=== PATIENT | female | born 1970 | race Caucasian/White ===

== ENCOUNTER 2018-06-20 09:08 | Inpatient (IN) ==
[2018-06-20] MEDS ORDERED: HYDROmorphone PF Inj 2 MG/ML Vial IV.PUSH ONE ×2 (09:30→11:51)
[2018-06-20 10:02] LABS: Baso # (Auto) 0.1 th/mm3 (0.0-0.2); Baso % (Auto) 0.9 % (0.0-2.0); Eos % (Auto) 0.4 % (0.0-4.0); Hematocrit 44.9 % (35.0-46.0); Hemoglobin 15.3 gm/dL (11.6-15.3); Lymph # (Auto) 1.6 th/mm3 (1.0-4.8); Lymph % (Auto) 18.3 % (9.0-44.0); Mean Corpuscular Hemoglobin 31.1 pg (27.0-34.0); Mean Corpuscular Volume 91.4 fL (80.0-100.0); Mean Platelet Volume 8.8 fL (7.0-11.0); Mono # (Auto) 0.4 th/mm3 (0.0-0.9); Mono % (Auto) 4.5 % (0.0-8.0); Neut # (Auto) 6.7 th/mm3 (1.8-7.7); Neut % (Auto) 75.9 % (16.0-70.0); Platelet Count 321 th/mm3 (150-450); Red Blood Count 4.91 mil/mm3 (4.00-5.30); Red Cell Distribution Width 15.4 % (11.6-17.2); White Blood Count 8.8 th/mm3 (4.0-11.0)
[2018-06-20] MEDS ORDERED: Sod Chloride 0.9% Inj 1,000 ML IV.SIG SCH (10:15)
--- NOTE | 2018-06-20 10:53 | CT ---
EXAM DATE: 06/20/2018 9:49 AM EDT AGE/SEX: 47 years / Female INDICATIONS: Severe back pain. CLINICAL DATA: This is the patient's initial encounter. Patient reports that signs and symptoms have been present for 1 day and indicates a pain score of 7/10. MEDICAL/SURGICAL HISTORY: Chronic obstructive pulmonary disease. Diabetes. Lupus. ankylosing spo ndylitis None. RADIATION DOSE: 23.54 CTDI (mGy) ; Combined studies COMPARISON: No prior exams available for comparison. TECHNIQUE: Contiguous axial images were acquired with a multirow detector CT scanner without contras t. Multiplanar reconstructions in the sagittal and coronal plane were also performed. Using automate d exposure control and adjustment of the mA and/or kV according to patient size, radiation dose was k ept as low as reasonably achievable to obtain optimal diagnostic quality images. DICOM format image data is available electronically for review and comparison. FINDINGS: Vertebrae: Normal vertebral body height. Degenerative disc disease at L4-5 with anterior endplate sc lerosis and degenerative disc disease. Alignment: Minimal anterolisthesis L3 on 4.. T12-L1: The thecal sac has a normal diameter. No evidence of disc bulge or protrusion. The neural foramina are patent bilaterally. L1-L2: The thecal sac has a normal diameter. No evidence of disc bulge or protrusion. The neural f oramina are patent bilaterally. L2-L3: The thecal sac has a normal diameter. No evidence of disc bulge or protrusion. The neural f oramina are patent bilaterally. L3-L4: Minimal anterolisthesis and mild broad-based protrusion abuts the ventral thecal sac. No dakota l stenosis. Mild neural foraminal narrowing bilaterally. Moderate facet arthropathy bilaterally but g reater on the right. L4-L5: Moderate broad-based protrusion abuts the ventral thecal sac. No significant canal stenosis. Mild neural foraminal narrowing bilaterally. Mild facet arthropathy. L5-S1: Mild broad-based disc bulge abuts the ventral thecal sac without canal stenosis. The neural foramina are patent bilaterally. Mild facet arthropathy. CONCLUSION: 1. Degenerative changes lower lumbar spine. 2. Degenerative disc disease L4-5. 3. Minimal anterolisthesis L3 on 4. 4. Protrusions/disc bulges along the lower lumbar spine as described above. 5. No compression fracture. Electronically signed by: Zafar Espino MD 06/20/2018 10:52 AM EDT
--- NOTE | 2018-06-20 11:07 | CT ---
EXAM DATE: 06/20/2018 9:49 AM EDT AGE/SEX: 47 years / Female INDICATIONS: Severe back pain. CLINICAL DATA: This is the patient's initial encounter. Patient reports that signs and symptoms have been present for 1 day and indicates a pain score of 7/10. MEDICAL/SURGICAL HISTORY: Chronic obstructive pulmonary disease. Diabetes. Lupus. ankylosing spo ndylitis None. RADIATION DOSE: 23.54 CTDI (mGy) ; Combined studies COMPARISON: None . TECHNIQUE: Contiguous axial images were acquired using a multirow detector CT scanner without contra st. Multiplanar reconstruction in the sagittal and coronal planes was performed. Using automated exp osure control and adjustment of the mA and/or kV according to patient size, radiation dose was kept a s low as reasonably achievable to obtain optimal diagnostic quality images. DICOM format image data is available electronically for review and comparison. FINDINGS: Vertebrae: Normal vertebral body height. Alignment: Normal. No subluxation. Images of the lung parenchyma show diffuse emphysematous changes. 2 pulmonary nodules observed. Withi n the left posterior lung base there is a 7 mm nodule and within the left upper lobe adjacent to the major fissure is an 8 mm subpleural nodule. There is an enlarged anterior mediastinal lymph node with in the prevascular space measuring 2.4 x 0.9 cm. T1 - T2: Normal. T2 - T3: The thecal sac has a normal diameter. No evidence of disc bulge or protrusion. T3 - T4: The thecal sac has a normal diameter. No evidence of disc bulge or protrusion. T4 - T5: The thecal sac has a normal diameter. No evidence of disc bulge or protrusion. T5 - T6: The thecal sac has a normal diameter. No evidence of disc bulge or protrusion. T6 - T7: The thecal sac has a normal diameter. No evidence of disc bulge or protrusion. T7 - T8: The thecal sac has a normal diameter. No evidence of disc bulge or protrusion. T8 - T9: The thecal sac has a normal diameter. No evidence of disc bulge or protrusion. T9 - T10: The thecal sac has a normal diameter. No evidence of disc bulge or protrusion. T10 - T11: The thecal sac has a normal diameter. No evidence of disc bulge or protrusion. T11 - T12: The thecal sac has a normal diameter. No evidence of disc bulge or protrusion. T12 - L1: The thecal sac has a normal diameter. No evidence of disc bulge or protrusion. CONCLUSION: 1. No acute abnormality. Central canal patent throughout. 2. Emphysematous changes with 2 small pulmonary nodules involving the left lung as well as a solitar y enlarged mediastinal lymph node. These are nonspecific in their appearance. A follow-up CT scan of the chest with IV contrast in 3-6 months is suggested to document stability. Electronically signed by: Pacheco Van MD 06/20/2018 11:06 AM EDT
[2018-06-20 11:13] LABS: Alanine Aminotransferase 21 U/L (10-53); Albumin 2.9 g/dL (3.4-5.0); Anion Gap 8 meq/L (5-15); Aspartate Aminotransferase 16 U/L (15-37); Blood Urea Nitrogen 12 mg/dL (7-18); Calcium 8.3 mg/dL (8.5-10.1); Carbon Dioxide 29.2 meq/L (21.0-32.0); Chloride 104 meq/L (98-107); Glomerular Filtration Rate Greater Than 89 mL/min (>89); Glucose,Random 255 mg/dL (74-106); Potassium 3.5 meq/L (3.5-5.1); Sodium 141 meq/L (136-145)
[2018-06-20 11:15] LABS: Alkaline Phosphatase 145 U/L (45-117)
--- NOTE | 2018-06-20 12:47 | MR ---
EXAM DATE: 06/20/2018 11:52 AM EDT AGE/SEX: 47 years / Female INDICATIONS: Pain. Mid back pain from fall today. CLINICAL DATA: This is the patient's initial encounter. Patient reports that signs and symptoms have been present for 1 day and indicates a pain score of 8/10. MEDICAL/SURGICAL HISTORY: Diabetes mellitus type I. Hypertension. Cholecystectomy. Appendecto my. Tubal ligation. Rt knee sx. COMPARISON: CT of the thoracic spine 06/20/2018. TECHNIQUE: Multiplanar, multisequence MRI of the thoracic spine was performed. FINDINGS: Vertebrae: Normal vertebral body height. Homogeneous marrow signal. Alignment: Normal. Cord: Normal position and configuration. T1-T2: The thecal sac has a normal diameter. No evidence of disc bulge or protrusion. T2-T3: The thecal sac has a normal diameter. No evidence of disc bulge or protrusion. T3-T4: The thecal sac has a normal diameter. No evidence of disc bulge or protrusion. T4-T5: The thecal sac has a normal diameter. No evidence of disc bulge or protrusion. T5-T6: The thecal sac has a normal diameter. No evidence of disc bulge or protrusion. T6-T7: There is a right paracentral disc protrusion that flattens the ventral portion of the cord. C entral canal is otherwise patent.. T7-T8: The thecal sac has a normal diameter. No evidence of disc bulge or protrusion. T8-T9: The thecal sac has a normal diameter. No evidence of disc bulge or protrusion. T9-T10: The thecal sac has a normal diameter. No evidence of disc bulge or protrusion. T10-T11: The thecal sac has a normal diameter. No evidence of disc bulge or protrusion. T11-T12: The thecal sac has a normal diameter. No evidence of disc bulge or protrusion. T12-L1: The thecal sac has a normal diameter. No evidence of disc bulge or protrusion. CONCLUSION: 1. Right paracentral disc protrusion at T6-T7 flattens the ventral portion of the cord. Signal withi n the cord is normal. Electronically signed by: Pacheco Van MD 06/20/2018 12:45 PM EDT
--- NOTE | 2018-06-20 12:51 | MR ---
EXAM DATE: 06/20/2018 11:52 AM EDT AGE/SEX: 47 years / Female INDICATIONS: HNP. Low back pain for one day from fall. CLINICAL DATA: This is the patient's initial encounter. Patient reports that signs and symptoms have been present for 1 day and indicates a pain score of 8/10. MEDICAL/SURGICAL HISTORY: Hypertension. Diabetes mellitus type I. Cholecystectomy. Appendecto my. Tubal ligation. COMPARISON: CT lumbar spine 06/20/2018. TECHNIQUE: Multiplanar, multisequence MRI of the lumbar spine was performed without contrast. Patie nt was scanned in a sitting position; neutral, flexion, and extension scans were performed in the sa gittal plane. FINDINGS: Vertebra: Homogeneous signal. There is a focal kyphosis at L4-L5 with mild splaying of the posterior elements. Conus: Normal level and configuration. T12-L1: The thecal sac has a normal diameter. No evidence of disc bulge or protrusion. The neural foramina are patent bilaterally. L1-L2: The thecal sac has a normal diameter. No evidence of disc bulge or protrusion. The neural foramina are patent bilaterally. L2-L3: The thecal sac has a normal diameter. No evidence of disc bulge or protrusion. The neural foramina are patent bilaterally. L3-L4: There is disc desiccation with mild disc space narrowing. A broad-based disc bulge eccentric to the right. Mild narrowing of the central canal which measures 8 mm in anterior to posterior dimen donald within the midline. Mild bony hypertrophy and ligamentum flavum hypertrophy of the facets. The d isc extends into the right neural foramen abutting the exiting right L3 nerve root. Left neural michael en is patent. L4-L5: There is a focal kyphosis centered at this level. There is disc desiccation and disc space n arrowing which is more pronounced anteriorly. A broad-based disc bulge is observed. Mild ligament fla vum hypertrophy of the facet joints. Central canal and lateral recesses are patent. The disc extends into the inferior margins of the neural foramina bilaterally but no impingement. L5-S1: The thecal sac has a normal diameter. No evidence of disc bulge or protrusion. The neural foramina are patent bilaterally. CONCLUSION: 1. Focal kyphosis at L4-L5 with mild splaying of the posterior elements. No edema. No ligamentous in jury appreciated. 2. Broad-based disc bulge at L3-L4 with right L3 neural foraminal impingement. Electronically signed by: Pacheco Van MD 06/20/2018 12:49 PM EDT
[2018-06-20 13:24] LABS: Bacteria,Urine Occasional /hpf; Bilirubin,Urine Negative (Negative); Clarity,Urine Hazy (Clear); Color,Urine Yellow (Yellw/Straw); Glucose,Urine (UA) 50 mg/dL (Negative); Leukocyte Esterase,Urine Negative (Negative); Mucus,Urine Few /lpf (Occasional); Nitrite,Urine Negative (Negative); Specific Gravity,Urine 1.015 (1.002-1.035); Squamous Epithelial Cell,Urine <1 /hpf (0-5)
--- NOTE | 2018-06-20 15:12 | ED ---
HPI General Chief complaint: Nausea/Vomiting/Diarrhea Stated complaint: nausea,back pain Time Seen by Provider: 06/20/18 09:30 History of Present Illness HPI narrative: This is a 47-year-old female with history of ankylosing spondylitis, Crohn's disease, rheumatoid arthritis, insulin dependent diabetes, presents today with severe lower back pain. Patient reports the back pain is a 10 out of 10. There is no relieving symptoms. Patient also states that she had loss of urine control earlier this morning. She also reports weakness in her legs. The patient denies any previous symptoms of such. She does report that she has had multiple spinal condition secondary to the . She denies any bowel incontinence. She reports that she is able to now move her lower extremities however was scared because of the episode that happened earlier. Related Data Home Medications Medication Instructions Recorded Confirmed hydromorphone [Dilaudid] 4 mg PO Q4-6H PRN 06/20/18 06/20/18 insulin lispro [Humalog U-100 1 sliding scale dose SUBCUT UD 06/20/18 06/20/18 Insulin] methadone 10 mg PO Q4H 06/20/18 06/20/18 prednisone 5 mg PO BID 06/20/18 06/20/18 promethazine 25 mg PO Q6H PRN 06/20/18 06/20/18 Allergies Allergy/AdvReac Type Severity Reaction Status Date / Time meperidine Allergy Mild NAUSEA AND Unverified 04/27/17 17:04 VOMIT morphine Allergy Nausea/Vomi Verified 06/20/18 09:24 ting Review of Systems ROS: all other systems reviewed are negative Constitutional Denies chills and Denies fever(s) Eyes Reports system reviewed and no additional complaints, except as docu ENT Reports system reviewed and no additional complaints, except as docu Cardiovascular Denies chest pain, Denies palpitations and Denies dyspnea Respiratory Denies chest congestion, Denies cough and Denies dyspnea Gastrointestinal Denies abdominal pain, Denies nausea, Denies vomiting and Denies other Genitourinary Reports urinary incontinence Musculoskeletal Reports back pain (Severe lower and mid), Denies numbness and Reports other ( Episodic weakness of her bilateral lower extremities.) Neurologic Denies headache(s), Denies sensory deficit and Reports weakness PMFSH Medical History Medical History Ankylosing spondylitis (Acute) COPD (chronic obstructive pulmonary disease) (Acute) Diabetes (Acute) Lung disease (Acute) Lupus (Acute) Rheumatoid arthritis (Acute) Social History Social History Substance History: No History of Abuse Second Hand Smoke Exposure: No Smoking Status: Never smoker How Often Do You Have a Drink Containing Alcohol: Never Recent Travel in [facility] within the Last 8 Weeks: No Recent Out of Country Travel within the Last 8 Weeks: No Immunization History Tetanus Immunization: <5 Years Exam Narrative Exam Narrative: GENERAL: Well-developed well-nourished female who is crying out in severe pain. SKIN: Focused skin assessment warm/dry. HEAD: Atraumatic. Normocephalic. EYES: No scleral icterus. No injection or drainage. ENT: No nasal bleeding or discharge. Mucous membranes pink and moist. NECK: Trachea midline. Supple. CARDIOVASCULAR: Regular rate and rhythm. No murmur appreciated. RESPIRATORY: No accessory muscle use. Clear to auscultation. Breath sounds equal bilaterally. GASTROINTESTINAL: Abdomen soft, non-tender, nondistended. Hepatic and splenic margins not palpable. MUSCULOSKELETAL: No obvious deformities. No clubbing. No cyanosis. No edema. NEUROLOGICAL: Awake and alert. No obvious cranial nerve deficits. Motor appeared grossly within normal limits in bilateral upper and lower eXTREMITIES: No clubbing, cyanosis, or edema. No joint tenderness, effusion, or edema noted. No calf tenderness. Bilateral Homans sign negative.. Normal speech. Course Initial Documented Vital Signs Temperature 98.3 F 06/20/18 09:24 Pulse Rate 73 06/20/18 09:24 Respiratory Rate 18 06/20/18 09:24 Blood Pressure 166/96 H 06/20/18 09:24 Pulse Oximetry 96 06/20/18 09:24 Last Documented Vital Signs Temperature 98.3 F 06/20/18 09:24 Pulse Rate 76 06/20/18 13:14 Respiratory Rate 18 06/20/18 13:14 Blood Pressure 125/75 06/20/18 13:14 Pulse Oximetry 96 06/20/18 13:14 Medical Decision Making MDM Narrative Medical decision making narrative: 47-year-old female with a history of ankylosing spondylitis, Crohn's disease, rheumatoid disease, chronic pain, presents here with severe pain. The patient was given 2 doses of Dilaudid 2 mg. The patient was requesting further pain medication. She and I had a discussion that she was at the limit of IV pain medication that I would be comfortable with and that any further doses would need to be given as an inpatient. She is okay with being admitted. Case was discussed with Dr. Batres , [facility], who agreed to admit the patient to the service. Given her intractable pain and findings on MRI which show bulging disks without severe cord compromise, she meets inpatient criteria. Medical Screen Exam Complete: Yes Emergency Medical Condition: Yes Differential Diagnosis Differential Diagnosis: Acute exacerbation of pain versus cauda equina syndrome versus spine fracture Lab Data Result diagrams: 06/20/18 09:30 06/20/18 10:45 Lab Results 06/20/18 06/20/18 06/20/18 Range/Units 09:30 10:45 12:07 WBC 8.8 (4.0-11.0) th/mm3 RBC 4.91 (4.00-5.30) mil/mm3 Hgb 15.3 (11.6-15.3) gm/dL Hct 44.9 (35.0-46.0) % MCV 91.4 (80.0-100.0) fL MCH 31.1 (27.0-34.0) pg MCHC 34.0 (32.0-36.0) % RDW 15.4 (11.6-17.2) % Plt Count 321 (150-450) th/mm3 MPV 8.8 (7.0-11.0) fL Neut % (Auto) 75.9 H (16.0-70.0) % Lymph % (Auto) 18.3 (9.0-44.0) % Price % (Auto) 4.5 (0.0-8.0) % Eos % (Auto) 0.4 (0.0-4.0) % Baso % (Auto) 0.9 (0.0-2.0) % Neut # (Auto) 6.7 (1.8-7.7) th/mm3 Lymph # (Auto) 1.6 (1.0-4.8) th/mm3 Price # (Auto) 0.4 (0.0-0.9) th/mm3 Eos # (Auto) 0.0 (0.0-0.4) th/mm3 Baso # (Auto) 0.1 (0.0-0.2) th/mm3 WBC Differential . Differential Comment Auto diff final Sodium 141 (136-145) meq/L Potassium 3.5 (3.5-5.1) meq/L Chloride 104 (98-107) meq/L Carbon Dioxide 29.2 (21.0-32.0) meq/L Anion Gap 8 (5-15) meq/L BUN 12 (7-18) mg/dL Creatinine 0.67 (0.50-1.00) mg/dL Estimated GFR Greater than 89 (>89) mL/min Random Glucose 255 H (74-106) mg/dL Calcium 8.3 L (8.5-10.1) mg/dL Total Bilirubin 0.2 (0.2-1.0) mg/dL AST 16 (15-37) U/L ALT 21 (10-53) U/L Alkaline Phosphatase 145 H (45-117) U/L Total Protein 7.0 (6.4-8.2) g/dL Albumin 2.9 L (3.4-5.0) g/dL Urine Color Yellow (Yellw/Straw) Urine Clarity Hazy H (Clear) Urine pH 7.0 (5.0-8.5) Ur Specific Jackpot 1.015 (1.002-1.035) Urine Protein 30 H (Neg-Trace) mg/dL Urine Glucose (UA) 50 (Negative) mg/dL Urine Ketones Negative (Negative) mg/dL Urine Occult Blood Negative (Negative) Urine Nitrate Negative (Negative) Urine Bilirubin Negative (Negative) Urine Urobilinogen Less than 2 (Less than 2) mg/dL Ur Leukocyte Esterase Negative (Negative) Urine RBC 11 H (0-3) /hpf Urine WBC 9 H (0-5) /hpf Ur Squamous Epith Cells <1 (0-5) /hpf Urine Bacteria Occasional H (None) /hpf Urine Mucus Few H (Occasional) /lpf Micro UA Comment Culture indicated Ur Microscopic Review Not Reportable Urine Culture Comments Culture indicated Imaging Data Radiologist's impression: Lumbar Spine CT 06/20/18 09:30 CONCLUSION: 1. Degenerative changes lower lumbar spine. 2. Degenerative disc disease L4-5. 3. Minimal anterolisthesis L3 on 4. 4. Protrusions/disc bulges along the lower lumbar spine as described above. 5. No compression fracture. Thoracic Spine CT 06/20/18 09:30 CONCLUSION: 1. No acute abnormality. Central canal patent throughout. 2. Emphysematous changes with 2 small pulmonary nodules involving the left lung as well as a solitary enlarged mediastinal lymph node. These are nonspecific in their appearance. A follow-up CT scan of the chest with IV contrast in 3-6 months is suggested to document stability. Lumbar Spine MRI 06/20/18 11:25 CONCLUSION: 1. Focal kyphosis at L4-L5 with mild splaying of the posterior elements. No edema. No ligamentous injury appreciated. 2. Broad-based disc bulge at L3-L4 with right L3 neural foraminal impingement. Thoracic Spine MRI 06/20/18 11:25 CONCLUSION: 1. Right paracentral disc protrusion at T6-T7 flattens the ventral portion of the cord. Signal within the cord is normal. Discharge Plan Discharge Disposition Patient Disposition: 30 Still Patient Discharge Details Diagnosis: Intractable back pain, Urinary tract infection, Ankylosing spondylitis, Rheumatoid arteritis Physicians Team ED Provider: López [place] Primary Care Provider: UNKNOWN, Rxs /Orders / Referrals /Forms Prescriptions: No Action methadone 10 mg Tablet 10 mg PO Q4H RF: 0 prednisone 5 mg Tablet 5 mg PO BID RF: 0 promethazine 25 mg Tablet 25 mg PO Q6H PRN (Reason: Nausea) RF: 0 hydromorphone [Dilaudid] 4 mg Tablet 4 mg PO Q4-6H PRN (Reason: Pain) RF: 0 insulin lispro [Humalog U-100 Insulin] 100 unit/mL Cartridge 1 sliding scale dose SUBCUT UD RF: 0 Discharge Interventions Interventions: Vital Signs Last Done: 06/20/18 13:14 Status ED Status: With Doctor
[2018-06-20] MEDS ORDERED: Bisacodyl 10 MG Supp RECTAL PRN (15:35)
[2018-06-20] MEDS ORDERED: Zolpidem Tartrate 5 MG Tablet PO PRN (15:35)
[2018-06-20] MEDS ORDERED: Naloxone Inj 0.4 MG/ML Vial IV.PUSH PRN (15:39)
[2018-06-20] MEDS ORDERED: HYDROmorphone PF Inj 1 MG/ML Ampul IV.PUSH PRN (15:39)
[2018-06-20] MEDS ORDERED: Acetaminophen 325 MG Tablet PO PRN (15:39)
--- NOTE | 2018-06-20 17:01 | P.HPIM ---
History of Present Illness Service: [facility] Primary Care Physician: UNKNOWN Chief Complaint: Intractable back pain History of Present Illness: 47-year-old white female with a history of rheumatoid arthritis, ankylosing spondylitis, type 1 diabetes mellitus, COPD, interstitial lung disease, Crohn's disease, peripheral arterial disease, lupus, ADD presents to the emergency room with acute onset of intractable low back pain superimposed on chronic pain which happened this morning as she was ambulating down the stairs. She states that the pain will felt like a sharp stabbing pain that radiates down bilateral lower legs and reported it her legs gave out on her. She also at that time had urinary incontinence. She had mild dysuria today otherwise has not had any abdominal pain nor any symptoms of fevers or chills. She has chronic diarrhea due to her Crohn's disease. She states that this type of pain has not happened in the past. She is in the process of moving here from [place], [place] and establishing with a pain management and primary dialysis patient care technician. She is currently prescribed methadone 10 mg which she takes 3 times a day and Dilaudid 4 mg 3 times a day for breakthrough pain for her chronic pain for her ankylosing spondylitis and rheumatoid arthritis. she reports one episode of nausea and nonbilious vomiting yesterday and was not able to tolerate p.o. pain medication. She denies any recent trauma to her back. She denies any active shortness of breath or chest pain. She does have a history of COPD but does not use inhalers on a chronic basis. Inpatient Certification: I certify that the inpatient services were ordered in accordance with Medicare regulations governing the order. This includes certification that hospital inpatient services are reasonable and necessary and in the case of services not specified as inpatient-only under 42 CFR 419.22(n), that they are appropriately provided as inpatient services in accordance to with the 2-midnight benchmark under 43 CFR 412.3(e) Estimated Total Length of Stay (Days): 3 Plans for Post Hospital Care: Home Review of Systems All other systems reviewed negative except as stated in HPI PMFSH - History History Provided By: Patient - Medical History Medical History: Medical History (Last Updated 06/20/18 @ 16:50 by Meghana Batres MD) Ankylosing spondylitis COPD (chronic obstructive pulmonary disease) Crohn's disease Diabetes type I Interstitial lung disease Lupus Peripheral arterial disease Rheumatoid arthritis Tubal ligation status - Surgical History Surgical History: Surgical History (Last Updated 06/20/18 @ 16:50 by Meghana Batres MD) History of cholecystectomy Hx of appendectomy S/P right knee arthroscopy - Family History Family History: Family History (Last Updated 06/20/18 @ 16:51 by Meghana Batres MD) Father Family history of acute myocardial infarction - Tobacco History Second Hand Smoke Exposure: No Tobacco Use In Past 30 Days: No Smoking Status: Never smoker - Alcohol History How Often Do You Have a Drink Containing Alcohol: Never - Substance Use History Substance History: No History of Abuse - Travel History Recent Travel in the [place] Within the Last 8 Weeks: No Recent Travel Out of the Country Within the Last 8 Weeks: No - Immunization History Tetanus Immunization: <5 Years Medications and Allergies Active Medications: Active Medications Acetaminophen (Tylenol) 650 mg PO Q6HR PRN PRN Reason: PAIN SCALE 1 TO 2 Al Hydroxide/Mg Hydroxide (Milk Of Magnesia Liq) 30 ml PO Q12H PRN PRN Reason: Mild Constipation Bisacodyl (Dulcolax Supp) 10 mg RECTAL DAILY PRN PRN Reason: SEVERE CONSITIPATION Cyclobenzaprine HCl (Flexeril) 10 mg PO Q8HR [facility] Enoxaparin Sodium (Lovenox Inj) 40 mg SQ Q24H [facility] Hydromorphone HCl (Dilaudid) 2 mg PO Q4H PRN PRN Reason: PAIN SCALE 6 TO 10 Hydromorphone HCl (Dilaudid Pf Inj) 1 mg IV.PUSH Q3H PRN PRN Reason: BREAKTHROUGH PAIN Sodium Chloride (Ns Inj) 1,000 mls @ 0 mls/hr IV.SIG BOLUS [facility] Last Infusion: 06/20/18 12:06 Dose: Infused Lactulose (Lactulose Liq) 30 ml PO DAILY PRN PRN Reason: SEVERE CONSITIPATION Naloxone HCl (Narcan Inj) 0.4 mg IV.PUSH UNSCH PRN PRN Reason: SEE LABEL COMMENTS Ondansetron HCl (Zofran Inj) 4 mg IV.PUSH Q6H PRN PRN Reason: NAUSEA OR VOMITING Oxycodone/Acetaminophen (Percocet 5/325 Mg) 1 tab PO Q6H PRN PRN Reason: PAIN SCALE 3 TO 5 Prednisone (Deltasone) 5 mg PO BID [facility] Promethazine HCl (Phenergan) 25 mg PO Q6H PRN PRN Reason: Nausea Senna/Docusate Sodium (Claudia-Colace) 1 tab PO BID [facility] Sennosides (Senokot) 17.2 mg PO Q12H PRN PRN Reason: Moderate Constipation Sodium Chloride (Ns Flush) 2 ml IV.FLUSH PRN PRN PRN Reason: FLUSH AFTER USING IV ACCESS Sodium Chloride (Ns Flush) 2 ml IV.FLUSH PRN PRN PRN Reason: FLUSH AFTER USING IV ACCESS Zolpidem Tartrate (Ambien) 5 mg PO HS PRN PRN Reason: INSOMNIA Allergies Allergy/AdvReac Type Severity Reaction Status Date / Time meperidine Allergy Mild NAUSEA AND Unverified 04/27/17 17:04 VOMIT morphine Allergy Nausea/Vomi Verified 06/20/18 09:24 ting Home Medications Medication Instructions Recorded Confirmed Type hydromorphone [Dilaudid] 4 mg PO Q4-6H PRN 06/20/18 06/20/18 History insulin NPH isoph U-100 human 30 unit SUBCUT BID 06/20/18 06/20/18 History [Humulin N NPH U-100 Insulin] insulin lispro [Humalog U-100 1 sliding scale dose SUBCUT UD 06/20/18 06/20/18 History Insulin] methadone 10 mg PO TID 06/20/18 06/20/18 History prednisone 5 mg PO BID 06/20/18 06/20/18 History promethazine 25 mg PO Q6H PRN 06/20/18 06/20/18 History Exam Vital signs: Vital Signs 06/20/18 09:24 06/20/18 13:14 Temperature 98.3 F Pulse Rate 73 76 Respiratory Rate 18 18 Blood Pressure 166/96 H 125/75 Pulse Oximetry 96 96 Intake & Output 06/19/18 06/20/18 06/20/18 18:59 06:59 18:59 Intake Total 1000 / 1000 Balance 1000 / 1000 Intake: IV 1000 / 1000 NS Inj 1,000 ML @ Wide Open IV. 1000 / 1000 SIG BOLUS [facility] Rx#:[id number] Narrative: GENERAL: Well-nourished thin white female in no acute distress SKIN: Warm and dry. HEAD: Atraumatic. Normocephalic. EYES: Pupils equal and round. No scleral icterus. No injection or drainage. ENT: No nasal bleeding or discharge. Mucous membranes pink and moist. NECK: Trachea midline. No JVD. CARDIOVASCULAR: Regular rate and rhythm. RESPIRATORY: No accessory muscle use. Clear to auscultation. Breath sounds equal bilaterally. GASTROINTESTINAL: Abdomen soft, non-tender, nondistended. Hepatic and splenic margins not palpable. Normoactive bowel sounds MUSCULOSKELETAL: Extremities without clubbing, cyanosis, or edema. Palpation of the mid paravertebral lumbar area showed mild tenderness on palpation, negative straight leg raise. NEUROLOGICAL: Awake and alert to person place time situation. No obvious cranial nerve deficits. Motor grossly within normal limits. Five out of 5 muscle strength in the arms and legs. Normal speech. PSYCHIATRIC: Appropriate mood and affect; insight and judgment normal. Results - Labs CBC & Chem 7: 06/20/18 09:30 06/20/18 10:45 Labs: Short CBC 06/20/18 Range/Units 09:30 WBC 8.8 (4.0-11.0) th/mm3 Hgb 15.3 (11.6-15.3) gm/dL Hct 44.9 (35.0-46.0) % Plt Count 321 (150-450) th/mm3 BMP 06/20/18 10:45 Sodium 141 Potassium 3.5 Chloride 104 Carbon Dioxide 29.2 BUN 12 Creatinine 0.67 Calcium 8.3 L Liver Function 06/20/18 Range/Units 10:45 Total Bilirubin 0.2 (0.2-1.0) mg/dL AST 16 (15-37) U/L ALT 21 (10-53) U/L Alkaline Phosphatase 145 H (45-117) U/L Albumin 2.9 L (3.4-5.0) g/dL Urine 06/20/18 Range/Units 12:07 Urine Color Yellow (Yellw/Straw) Urine Clarity Hazy H (Clear) Urine pH 7.0 (5.0-8.5) Ur Specific [place] 1.015 (1.002-1.035) Urine Protein 30 H (Neg-Trace) mg/dL Urine Glucose (UA) 50 (Negative) mg/dL - Imaging Impressions Lumbar Spine CT 06/20/18 09:30 CONCLUSION: 1. Degenerative changes lower lumbar spine. 2. Degenerative disc disease L4-5. 3. Minimal anterolisthesis L3 on 4. 4. Protrusions/disc bulges along the lower lumbar spine as described above. 5. No compression fracture. Thoracic Spine CT 06/20/18 09:30 CONCLUSION: 1. No acute abnormality. Central canal patent throughout. 2. Emphysematous changes with 2 small pulmonary nodules involving the left lung as well as a solitary enlarged mediastinal lymph node. These are nonspecific in their appearance. A follow-up CT scan of the chest with IV contrast in 3-6 months is suggested to document stability. Lumbar Spine MRI 06/20/18 11:25 CONCLUSION: 1. Focal kyphosis at L4-L5 with mild splaying of the posterior elements. No edema. No ligamentous injury appreciated. 2. Broad-based disc bulge at L3-L4 with right L3 neural foraminal impingement. Thoracic Spine MRI 06/20/18 11:25 CONCLUSION: 1. Right paracentral disc protrusion at T6-T7 flattens the ventral portion of the cord. Signal within the cord is normal. Caprini VTE Risk Assessment Caprini VTE Risk Assessment: Moderate/High Risk (score >= 2) Caprini Risk Assessment Model: Point Value = 1 Point Value = 2 Point Value = 3 Point Value = 5 Age 41-60 Minor surgery BMI > 25 kg/m2 Swollen legs Varicose veins or History of unexplained or recurrent spontaneous Oral contraceptives or hormone replacement Sepsis (< 1 month) Serious lung disease, including pneumonia (< 1 month) Abnormal pulmonary function Acute myocardial infarction Congestive heart failure (< 1 month) History of inflammatory bowel disease Medical patient at bed rest Age 61-74 Arthroscopic surgery Major open surgery (> 45 min) Laparoscopic surgery (> 45 min) Malignancy Confined to bed (> 72 hours) Immobilizing plaster cast Central venous access Age >= 75 History of VTE Family history of VTE Factor V Leiden Prothrombin [id number] Lupus anticoagulant Anticardiolipin antibodies Elevated serum homocysteine Heparin-induced thrombocytopenia Other congenital or acquired thrombophilia Stroke (< 1 month) Elective arthroplasty Hip, pelvis, or leg fracture Acute spinal cord injury (< 1 month) Prophylaxis Regimen: Total Risk Factor Score Risk Level Prophylaxis Regimen 0-1 Low Early ambulation 2 Moderate Order ONE of the following: *Sequential Compression Device (SCD) *Heparin 5000 units SQ BID 3-4 Higher Order ONE of the following medications: *Heparin 5000 units SQ TID *Enoxaparin/Lovenox 40 mg SQ daily (WT < 150 kg, CrCl > 30 mL/min) *Enoxaparin/Lovenox 30 mg SQ daily (WT < 150 kg, CrCl > 10-29 mL/min) *Enoxaparin/Lovenox 30 mg SQ BID (WT < 150 kg, CrCl > 30 mL/min) AND/OR *Sequential Compression Device (SCD) 5 or more Highest Order ONE of the following medications: *Heparin 5000 units SQ TID (Preferred with Epidurals) *Enoxaparin/Lovenox 40 mg SQ daily (WT < 150 kg, CrCl > 30 mL/min) *Enoxaparin/Lovenox 30 mg SQ daily (WT < 150 kg, CrCl > 10-29 mL/min) *Enoxaparin/Lovenox 30 mg SQ BID (WT < 150 kg, CrCl > 30 mL/min) AND *Sequential Compression Device (SCD) Assessment and Plan - Plan 47-year-old white female with a history of insulin-dependent diabetes mellitus, rheumatoid arthritis, ankylosing spondylitis presents with 1. Intractable acute on chronic back pain now with radiculopathyMRI of the T and L-spine reviewed with disc protrusions and kyphosis in the L4-5 area patient already received 2 [id number] doses of Dilaudid 2 mg IV with no relief. Will admit the patient for continued IV pain medication with her chronic methadone home dosing. Safe use of opiates discussed with the patient today. Will consult neurosurgery for further evaluation and recommendations 2. Abnormal urinalysis rule out underlying urinary tract infectiondose of Rocephin given will follow with final cultures. 3. Diabetes mellitus type 1, insulin-dependent and uncontrolled. Continue with home NPH dosing and NovoLog sliding scale insulin. 4. History of rheumatoid arthritis, lupuswill continue with home prednisone. 5. History of COPD chronic Not in acute exacerbation. 6. DVT prophylaxisLovenox.
[2018-06-20] MEDS: Enoxaparin Inj 40 MG/0.4 ML Syringe SQ SCH (17:07)
--- NOTE | 2018-06-20 19:01 | P.CONNS ---
History of Present Illness Consult date: 06/20/18 Requesting Physician: Meghana Batres Reason for Consult: Thoracic and lumbar disc protrusion Primary Care Provider: UNKNOWN Family Provider: No Primary Care Physician Chief Complaint: Intractable back pain History of Present Illness: 47-year-old female with a chronic history of low back pain followed by pain management and history of rheumatoid arthritis, ankylosing spondylitis, type 1 diabetes mellitus, COPD, interstitial lung disease, Crohn's disease, peripheral arterial disease, lupus, and ADD. She had an acute exacerbation of her chronic back pain involving the thoracic and lumbar spine and states at times radiates down to the right leg prompting her to come to the emergency room. She reportedly is on chronic methadone and also takes Dilaudid for pain and [place] and strained to find a pain specialist but not been successful so far. She relates that the pain was so severe that she lost control of her urine but since then has been able to void. Workup in the emergency room included a CT scan and MRI scan of the lumbar and thoracic spine which reveals a mild T6-7 and L4-5 spinal stenosis. Review of Systems All other systems reviewed negative except as stated in HPI PMFSH - History History Provided By: Patient - Medical History Medical History: Medical History (Last Reviewed 06/20/18 @ 18:58 by Glenn Britton MD) Ankylosing spondylitis COPD (chronic obstructive pulmonary disease) Crohn's disease Diabetes type I Interstitial lung disease Lupus Peripheral arterial disease Rheumatoid arthritis Tubal ligation status - Surgical History Surgical History: Surgical History (Last Reviewed 06/20/18 @ 18:58 by Glenn Britton MD) History of cholecystectomy Hx of appendectomy S/P right knee arthroscopy - Family History Family History: Family History (Last Reviewed 06/20/18 @ 18:58 by Glenn Britton MD) Father Family history of acute myocardial infarction - Tobacco History Second Hand Smoke Exposure: No Tobacco Use In Past 30 Days: No Smoking Status: Never smoker - Alcohol History How Often Do You Have a Drink Containing Alcohol: Never - Substance Use History Substance History: No History of Abuse - Travel History Recent Travel in the [place] Within the Last 8 Weeks: No Recent Travel Out of the Country Within the Last 8 Weeks: No - Immunization History Tetanus Immunization: <5 Years Medications and Allergies Active Medications: Active Medications Acetaminophen (Tylenol) 650 mg PO Q6HR PRN PRN Reason: PAIN SCALE 1 TO 2 Al Hydroxide/Mg Hydroxide (Milk Of Magnesia Liq) 30 ml PO Q12H PRN PRN Reason: Mild Constipation Bisacodyl (Dulcolax Supp) 10 mg RECTAL DAILY PRN PRN Reason: SEVERE CONSITIPATION Cyclobenzaprine HCl (Flexeril) 10 mg PO Q8HR [facility] Enoxaparin Sodium (Lovenox Inj) 40 mg SQ Q24H [facility] Last Admin: 06/20/18 17:07 Dose: Not Given Hydromorphone HCl (Dilaudid) 2 mg PO Q4H PRN PRN Reason: PAIN SCALE 6 TO 10 Last Admin: 06/20/18 17:59 Dose: 2 mg Hydromorphone HCl (Dilaudid Pf Inj) 1 mg IV.PUSH Q3H PRN PRN Reason: BREAKTHROUGH PAIN Sodium Chloride (Ns Inj) 1,000 mls @ 0 mls/hr IV.SIG BOLUS [facility] Last Infusion: 06/20/18 12:06 Dose: Infused Lactulose (Lactulose Liq) 30 ml PO DAILY PRN PRN Reason: SEVERE CONSITIPATION Naloxone HCl (Narcan Inj) 0.4 mg IV.PUSH UNSCH PRN PRN Reason: SEE LABEL COMMENTS Ondansetron HCl (Zofran Inj) 4 mg IV.PUSH Q6H PRN PRN Reason: NAUSEA OR VOMITING Oxycodone/Acetaminophen (Percocet 5/325 Mg) 1 tab PO Q6H PRN PRN Reason: PAIN SCALE 3 TO 5 Prednisone (Deltasone) 5 mg PO BID [facility] Promethazine HCl (Phenergan) 25 mg PO Q6H PRN PRN Reason: Nausea Senna/Docusate Sodium (Claudia-Colace) 1 tab PO BID [facility] Sennosides (Senokot) 17.2 mg PO Q12H PRN PRN Reason: Moderate Constipation Sodium Chloride (Ns Flush) 2 ml IV.FLUSH PRN PRN PRN Reason: FLUSH AFTER USING IV ACCESS Sodium Chloride (Ns Flush) 2 ml IV.FLUSH PRN PRN PRN Reason: FLUSH AFTER USING IV ACCESS Zolpidem Tartrate (Ambien) 5 mg PO HS PRN PRN Reason: INSOMNIA Allergies Allergy/AdvReac Type Severity Reaction Status Date / Time meperidine Allergy Mild NAUSEA AND Unverified 04/27/17 17:04 VOMIT morphine Allergy Nausea/Vomi Verified 06/20/18 09:24 ting Home Medications Medication Instructions Recorded Confirmed Type hydromorphone [Dilaudid] 4 mg PO Q4-6H PRN 06/20/18 06/20/18 History insulin NPH isoph U-100 human 30 unit SUBCUT BID 06/20/18 06/20/18 History [Humulin N NPH U-100 Insulin] insulin lispro [Humalog U-100 1 sliding scale dose SUBCUT UD 06/20/18 06/20/18 History Insulin] methadone 10 mg PO TID 06/20/18 06/20/18 History prednisone 5 mg PO BID 06/20/18 06/20/18 History promethazine 25 mg PO Q6H PRN 06/20/18 06/20/18 History Exam Vital signs: Vital Signs 06/20/18 09:24 06/20/18 13:14 06/20/18 17:56 Temperature 98.3 F 98.5 F Pulse Rate 73 76 80 Respiratory Rate 18 18 20 Blood Pressure 166/96 H 125/75 136/75 Pulse Oximetry 96 96 98 Intake & Output 06/19/18 06/20/18 06/20/18 18:59 06:59 18:59 Intake Total 1000 / 1000 Balance 1000 / 1000 Intake: IV 1000 / 1000 NS Inj 1,000 ML @ Wide Open IV. 1000 / 1000 SIG BOLUS [facility] Rx#:[id number] Other: Date of Last Bowel Movement 06/20/18 - Constitutional mild distress, average body habitus - Routine HEENT Exam Head: Present: normocephalic, atraumatic Eye: Present: EOMI, PERRL ENT: Present: mucous membranes moist, oropharynx clear, nares patent, external ear normal - Routine Neck Exam Present: supple, full ROM - Routine Respiratory Exam Present: CTA bilaterally - Routine Cardiovascular Exam Present: RRR, S1, S2 - Routine Abdominal Exam Present: soft, normoactive bowel sounds - Routine Extremities Exam Present: full ROM - Routine Skin Exam Present: intact - Routine Neurological Exam Present: oriented X3, CN II-XII intact, plantar reflex, moving all extremities, normal speech Results - Laboratory Findings CBC and BMP: 06/20/18 09:30 06/20/18 10:45 Abnormal lab findings: Abnormal Labs 06/20/18 06/20/18 06/20/18 09:30 10:45 12:07 Neut % (Auto) 75.9 H POC Glucose Random Glucose 255 H Calcium 8.3 L Alkaline Phosphatase 145 H Albumin 2.9 L Urine Clarity Hazy H Urine Protein 30 H Urine RBC 11 H Urine WBC 9 H Urine Bacteria Occasional H Urine Mucus Few H 06/20/18 18:16 Neut % (Auto) POC Glucose 266 H Random Glucose Calcium Alkaline Phosphatase Albumin Urine Clarity Urine Protein Urine RBC Urine WBC Urine Bacteria Urine Mucus - Diagnostic Findings Additional findings: Impressions Lumbar Spine CT 06/20/18 09:30 CONCLUSION: 1. Degenerative changes lower lumbar spine. 2. Degenerative disc disease L4-5. 3. Minimal anterolisthesis L3 on 4. 4. Protrusions/disc bulges along the lower lumbar spine as described above. 5. No compression fracture. Thoracic Spine CT 06/20/18 09:30 CONCLUSION: 1. No acute abnormality. Central canal patent throughout. 2. Emphysematous changes with 2 small pulmonary nodules involving the left lung as well as a solitary enlarged mediastinal lymph node. These are nonspecific in their appearance. A follow-up CT scan of the chest with IV contrast in 3-6 months is suggested to document stability. Lumbar Spine MRI 06/20/18 11:25 CONCLUSION: 1. Focal kyphosis at L4-L5 with mild splaying of the posterior elements. No edema. No ligamentous injury appreciated. 2. Broad-based disc bulge at L3-L4 with right L3 neural foraminal impingement. Thoracic Spine MRI 06/20/18 11:25 CONCLUSION: 1. Right paracentral disc protrusion at T6-T7 flattens the ventral portion of the cord. Signal within the cord is normal. Assessment and Plan - Assessment (1) Intractable back pain Code(s): M54.9 - Dorsalgia, unspecified Status: Acute - Plan 47-year-old female with acute on chronic history of low back pain and on methadone along with Dilaudid. She had an acute exacerbation of her chronic thoracolumbar back pain this morning with workup revealing mild thoracic and lumbar spine stenosis which also appear to be chronic. Severity of her symptoms do not corroborate with the imaging studies. No neurosurgical intervention is recommended. Discussed with mother.
[2018-06-20] MEDS: HYDROmorphone PF Inj 2 MG/ML Vial IV.PUSH PRN (19:07)
[2018-06-20] MEDS: Methadone 10 MG Tablet PO SCH (21:54)
[2018-06-20] MEDS: predniSONE 5 MG Tablet PO SCH (21:56)
[2018-06-20] MEDS: Senna/Docusate Sodium 8.6/50 MG Tablet PO SCH (21:57)
[2018-06-21] MEDS: HYDROmorphone PF Inj 2 MG/ML Vial IV.PUSH PRN (00:17)
[2018-06-21 05:08] VITALS: O2SAT 95
[2018-06-21] MEDS: Methadone 10 MG Tablet PO SCH ×3 (08:04→17:03)
[2018-06-21] MEDS: predniSONE 5 MG Tablet PO SCH (08:04)
[2018-06-21] MEDS: Senna/Docusate Sodium 8.6/50 MG Tablet PO SCH (08:06)
[2018-06-21] MEDS ORDERED: HYDROmorphone PF Inj 2 MG/ML Vial IV.PUSH PRN (08:07)
--- NOTE | 2018-06-21 08:10 | P.PN ---
Subjective Interval history: awake and alert afebrile, dnies any dyruia or urgency or incontinence seen with staff nurse at [facility] d/w staff benjamin states she sees a pain managemnt specialist in [facility]- Dr. gallardo states chronic back pain- on dilaudid 4 mg tid and Methadone 10 mg tid known diabetic insulin requiring- states on NPG 30 units bid and sliding scale Novolog no PCP at this time states her Medcare will start this month patient sat up immediately on her own from laying to sitting up Physical Exam Vital signs: Vital Signs 06/20/18 09:24 06/20/18 13:14 06/20/18 17:56 Temperature 98.3 F 98.5 F Pulse Rate 73 76 80 Respiratory Rate 18 18 20 Blood Pressure 166/96 H 125/75 136/75 Pulse Oximetry 96 96 98 06/20/18 19:00 06/20/18 20:00 06/21/18 00:00 Temperature 98.7 F 98.0 F Pulse Rate 82 75 Respiratory Rate 20 18 18 Blood Pressure 119/70 159/87 H Pulse Oximetry 95 96 06/21/18 03:16 06/21/18 04:00 06/21/18 07:00 Temperature 98.3 F Pulse Rate 76 Respiratory Rate 18 20 12 Blood Pressure 136/68 Pulse Oximetry 95 Intake & Output 06/20/18 06/21/18 06/21/18 18:59 06:59 18:59 Intake Total 1000 / 1000 100 / 100 Balance 1000 / 1000 100 / 100 Weight 56.245 kg Intake: IV 1000 / 1000 100 / 100 NS Inj 1,000 ML @ Wide Open IV. 1000 / 1000 SIG BOLUS MICAH Rx#:[id number] Rocephin Inj 1,000 MG In NS Inj 100 / 100 100 ML @ 200 mls/hr IV.SIG ONCE ONE Rx#:[id number] Other: # Voids 2 Date of Last Bowel Movement 06/20/18 06/20/18 # Bowel Movements 3 Narrative: GENERAL: awake and alert, no acute distress SKIN: Warm and dry. HEAD: Atraumatic. Normocephalic. EYES: Pupils equal and round. No scleral icterus. No injection or drainage. ENT: No nasal bleeding or discharge. Mucous membranes pink and moist. NECK: Trachea midline. No JVD. CARDIOVASCULAR: Regular rate and rhythm. RESPIRATORY: No accessory muscle use. Clear to auscultation. Breath sounds equal bilaterally. GASTROINTESTINAL: Abdomen soft, non-tenderNormoactive bowel sounds MUSCULOSKELETAL: Extremities without clubbing, cyanosis, or edema. - no tenderness on palpation of the spines -patient was observed to sat up right away from laying down to sitting up on side of the bed NEUROLOGICAL: Awake and alert to person place time situation. No obvious cranial nerve deficits. Motor grossly within normal limits. Five out of 5 muscle strength in the arms and legs. Normal speech. grossly no sensory deficits PSYCHIATRIC: Appropriate mood and affect; insight and judgment normal. Results - Labs CBC & Chem 7: 06/20/18 09:30 06/20/18 10:45 Laboratory Results - last 24 hr 06/20/18 06/20/18 06/20/18 09:30 10:45 12:07 WBC 8.8 RBC 4.91 Hgb 15.3 Hct 44.9 MCV 91.4 MCH 31.1 MCHC 34.0 RDW 15.4 Plt Count 321 MPV 8.8 Neut % (Auto) 75.9 H Lymph % (Auto) 18.3 [place] % (Auto) 4.5 Eos % (Auto) 0.4 Baso % (Auto) 0.9 Neut # (Auto) 6.7 Lymph # (Auto) 1.6 [place] # (Auto) 0.4 Eos # (Auto) 0.0 Baso # (Auto) 0.1 WBC Differential . Differential Comment Auto diff final Sodium 141 Potassium 3.5 Chloride 104 Carbon Dioxide 29.2 Anion Gap 8 BUN 12 Creatinine 0.67 Estimated GFR Greater than 89 POC Glucose Random Glucose 255 H Calcium 8.3 L Total Bilirubin 0.2 AST 16 ALT 21 Alkaline Phosphatase 145 H Total Protein 7.0 Albumin 2.9 L Urine Color Yellow Urine Clarity Hazy H Urine pH 7.0 Ur Specific [place] 1.015 Urine Protein 30 H Urine Glucose (UA) 50 Urine Ketones Negative Urine Occult Blood Negative Urine Nitrate Negative Urine Bilirubin Negative Urine Urobilinogen Less than 2 Ur Leukocyte Esterase Negative Urine RBC 11 H Urine WBC 9 H Ur Squamous Epith Cells <1 Urine Bacteria Occasional H Urine Mucus Few H Micro UA Comment Culture indicated Ur Microscopic Review Not Reportable Urine Culture Comments Culture indicated 06/20/18 06/20/18 18:16 21:52 WBC RBC Hgb Hct MCV MCH MCHC RDW Plt Count MPV Neut % (Auto) Lymph % (Auto) [place] % (Auto) Eos % (Auto) Baso % (Auto) Neut # (Auto) Lymph # (Auto) [place] # (Auto) Eos # (Auto) Baso # (Auto) WBC Differential Differential Comment Sodium Potassium Chloride Carbon Dioxide Anion Gap BUN Creatinine Estimated GFR POC Glucose 266 H 399 H Random Glucose Calcium Total Bilirubin AST ALT Alkaline Phosphatase Total Protein Albumin Urine Color Urine Clarity Urine pH Ur Specific [place] Urine Protein Urine Glucose (UA) Urine Ketones Urine Occult Blood Urine Nitrate Urine Bilirubin Urine Urobilinogen Ur Leukocyte Esterase Urine RBC Urine WBC Ur Squamous Epith Cells Urine Bacteria Urine Mucus Micro UA Comment Ur Microscopic Review Urine Culture Comments - Imaging Impressions Lumbar Spine CT 06/20/18 09:30 CONCLUSION: 1. Degenerative changes lower lumbar spine. 2. Degenerative disc disease L4-5. 3. Minimal anterolisthesis L3 on 4. 4. Protrusions/disc bulges along the lower lumbar spine as described above. 5. No compression fracture. Thoracic Spine CT 06/20/18 09:30 CONCLUSION: 1. No acute abnormality. Central canal patent throughout. 2. Emphysematous changes with 2 small pulmonary nodules involving the left lung as well as a solitary enlarged mediastinal lymph node. These are nonspecific in their appearance. A follow-up CT scan of the chest with IV contrast in 3-6 months is suggested to document stability. Lumbar Spine MRI 06/20/18 11:25 CONCLUSION: 1. Focal kyphosis at L4-L5 with mild splaying of the posterior elements. No edema. No ligamentous injury appreciated. 2. Broad-based disc bulge at L3-L4 with right L3 neural foraminal impingement. Thoracic Spine MRI 06/20/18 11:25 CONCLUSION: 1. Right paracentral disc protrusion at T6-T7 flattens the ventral portion of the cord. Signal within the cord is normal. Assessment and Plan - Plan 47-year-old white female with a history of insulin-dependent diabetes mellitus, rheumatoid arthritis, ankylosing spondylitis presents with baseline ambulatory with no assistive device Intractable acute on chronic back pain now with radiculopathyMRI of the T and L -spine reviewed with disc protrusions and kyphosis in the L4-5 area - seen by neurosurgery- no surgical intervention - continue on pain meds- methadone 10 mg po bid - restart Dilaudid 4 mg tid - PT eval and treat - OP ff up with her pain management Abnormal urinalysis rule out underlying urinary tract infection - ff c and S- pending - continue on Rocephin Diabetes mellitus type 1, insulin-dependent and uncontrolled. - per aptient variable, states good hypoglycemic awareness -state she does carb countinf -continue on NPH bid and sliding scale Novolog -d/w her goals- diffiuclt on chronic steroids for her RA - needs to set up with a PCP History of rheumatoid arthritis, lupus -will continue with home prednisone maintenance dose History of COPD chronic Not in acute exacerbation. DVT prophylaxisLovenox. will ask CM assistance to set up with a PCP- just moved down here from [place] [facility] julietteal daily- out of bed DC today c and S back- no growth DC Rocephin
[2018-06-21] MEDS ORDERED: Dextrose 50% in Water 50 ML Vial IV.PUSH PRN (08:20)
[2018-06-21] MEDS ORDERED: Insulin NovoLOG Aspart Correctional Sugar Inj SQ SCH (12:00)
[2018-06-21 12:35] VITALS: RESP 20
[2018-06-21] MEDS: Enoxaparin Inj 40 MG/0.4 ML Syringe SQ SCH (15:59)
[2018-06-21 16:56] VITALS: BP 157/79; PULSE 80; TEMP 97.8
[2018-06-21] MEDS ORDERED: Fluconazole 100 MG Tablet PO ONE (17:00)
== END 2018-06-21 17:31 | disposition home or self-care (01) ==
LOC: NEPC 09:08 → NEDA 15:50 → N05 17:19
PROVIDERS: ADMIT Internal Medicine; ATTEND Internal Medicine